=== PATIENT | female | born 1945 | race Caucasian/White ===

== ENCOUNTER 2017-03-12 16:58 | Inpatient (IN) | payer MEDICARE, BC ==
[~2017-03-12] VITALS: Ht 167.6 cm; Wt 62.6 kg
[2017-03-12 18:50] LABS: BASOPHILS 0.2 % (0-2); EOSINOPHILS 0.7 % (0-7); HEMATOCRIT 39.2 % (36.0-48.0); HEMOGLOBIN 13.2 g/dL (12-16); IMMATURE GRANULOCYTES 0.2 % (0-5); MCH 29.1 pg (26.0-34.0); MCHC 33.7 g/dL (31.0-37.0); MCV 86.5 fL (80.0-100.0); MEAN PLATELET VOLUME 10.2 fL (7.4-10.4); MONOCYTES 3.8 % (2-11); NEUTROPHILS 86.1 % (40-80); PLATELET COUNT 225 10x3/uL (130-400); RBC 4.53 10x6/uL (4.00-5.40); RDW 13.5 % (11.5-14.5)
[2017-03-12 19:18] LABS: ALBUMIN 4.4 g/dL (3.4-5.0); ALKALINE PHOSPHATASE 38 U/L (46-116); ALT (SGPT) 22 U/L (10-68); BILIRUBIN - TOTAL 0.67 mg/dL (0.2-1.3); CALC OSMOLALITY 261 mosm/kg (275-300); CALCIUM 9.8 mg/dL (8.5-10.1); CARBON DIOXIDE 29.3 mmol/L (21.0-32.0); CHLORIDE - SERUM 93 mmol/L (98-107); CREATININE - SERUM 0.8 mg/dL (0.6-1.3); GLUCOSE 121 mg/dL (74-106); POTASSIUM - SERUM 4.1 mmol/L (3.5-5.1); PROTEIN - SERUM 7.3 g/dL (6.4-8.2); SODIUM 130 mmol/L (136-145); UREA NITROGEN 13 mg/dL (7-18); eGFR NON AFRICAN AMERICAN 75 mL/min (90-120)
[2017-03-12 19:27] LABS: APPEARANCE CLEAR (CLEAR); COLOR YELLOW (YELLOW); GLUCOSE NEGATIVE (NEGATIVE); KETONE MODERATE mg/dL (NEGATIVE); LEUKOCYTE ESTERASE TRACE (NEGATIVE); NITRITE NEGATIVE (NEGATIVE); PROTEIN NEGATIVE (NEGATIVE)
[2017-03-12 19:28] LABS: BILIRUBIN NEGATIVE (NEGATIVE); EPITHELIAL CELLS 0-5 /hpf (0-5); RED CELLS - URINE 0-5 /hpf (0-5); UROBILINOGEN NORMAL (NORMAL); WHITE CELLS - URINE 0-5 /hpf (0-5)
[2017-03-12 19:29] LABS: BACTERIA MODERATE /hpf (NONE SEEN)
[2017-03-13 00:26] VITALS: BP 182/84; BMI 22.3
[2017-03-13 04:00] VITALS: BP 124/73
[2017-03-13 05:00] LABS: BASOPHILS 0.1 % (0-2); EOSINOPHILS 0.1 % (0-7); HEMATOCRIT 38.9 % (36.0-48.0); HEMOGLOBIN 13.3 g/dL (12-16); IMMATURE GRANULOCYTES 0.2 % (0-5); LYMPHOCYTES 9.8 % (15-50); MCH 29.2 pg (26.0-34.0); MCHC 34.2 g/dL (31.0-37.0); MCV 85.3 fL (80.0-100.0); MEAN PLATELET VOLUME 10.3 fL (7.4-10.4); MONOCYTES 3.8 % (2-11); PLATELET COUNT 253 10x3/uL (130-400); RBC 4.56 10x6/uL (4.00-5.40); RDW 13.3 % (11.5-14.5)
[2017-03-13 05:10] LABS: CALC OSMOLALITY 261 mosm/kg (275-300); CALCIUM 9.3 mg/dL (8.5-10.1); CARBON DIOXIDE 27.5 mmol/L (21.0-32.0); CHLORIDE - SERUM 93 mmol/L (98-107); CREATININE - SERUM 0.8 mg/dL (0.6-1.3); GLUCOSE 113 mg/dL (74-106); POTASSIUM - SERUM 3.8 mmol/L (3.5-5.1); SODIUM 130 mmol/L (136-145); UREA NITROGEN 12 mg/dL (7-18); eGFR NON AFRICAN AMERICAN 75 mL/min (90-120)
[2017-03-13] MEDS ORDERED: NAPROSYN500 MG PO (06:07)
[2017-03-13] MEDS ORDERED: LYRICA100 MG PO (06:08)
[2017-03-13] MEDS ORDERED: HYDROCODON-ACE1 EAC7 PO (06:09)
[2017-03-13] MEDS ORDERED: LIALDA1.2 G PO (06:09)
[2017-03-13] MEDS ORDERED: BONIVA150 MG PO (06:10)
[2017-03-13 07:55] LABS: AMYLASE - SERUM 38 U/L (25-115); LIPASE 94 U/L (73-393)
[2017-03-13 08:32] VITALS: BP 134/61
[2017-03-13 12:30] VITALS: BP 160/61
[2017-03-13 16:02] VITALS: BP 155/69; Ht 167.6 cm; Wt 62.6 kg
--- NOTE | 2017-03-13 19:00 | NUR ---
PATIENT SUPINE IN BED. HOB 30 DEGREES. AAOX4. RR EVEN AND UNLABORED. 0 S/S OF DISTRESS. STATES PAIN IS A 7/10 IN HER LEGS DUE TO NERVE PAIN. EXPLAINED TO PATIENT THAT HER LYRICA IS NOT ORDERED, BUT THAT SHE DOES HAVE DILAUDID. IV TO LEFT AC PATENT WITH NO REDNESS OR SWELLING. NG TUBE TO LIS. TELEMETRY ON. AT BEDSIDE. SRX1. BED LOW. CALL LIGHT WITHIN REACH.
--- NOTE | 2017-03-13 20:30 | NUR ---
DILAUDID GIVEN FOR PAIN. WILL REASSESS.
[2017-03-14] VITALS: BP 147/64
--- NOTE | 2017-03-14 02:45 | NUR ---
DILAUDID GIVEN FOR PAIN OF A 6/10. NOW RESTING IN BED WITH NO OTHER NEEDS.
[2017-03-14 04:00] VITALS: BP 125/60
[2017-03-14 04:42] LABS: BASOPHILS 0.6 % (0-2); EOSINOPHILS 2.3 % (0-7); HEMATOCRIT 36.1 % (36.0-48.0); HEMOGLOBIN 12.1 g/dL (12-16); IMMATURE GRANULOCYTES 0.3 % (0-5); LYMPHOCYTES 16.2 % (15-50); MCH 29.3 pg (26.0-34.0); MCHC 33.5 g/dL (31.0-37.0); MEAN PLATELET VOLUME 10.4 fL (7.4-10.4); NEUTROPHILS 72.6 % (40-80); PLATELET COUNT 222 10x3/uL (130-400); RBC 4.13 10x6/uL (4.00-5.40); RDW 13.6 % (11.5-14.5)
[2017-03-14 04:47] LABS: MCV 87.4 fL (80.0-100.0); WBC 6.6 10x3/uL (4.8-10.8)
[2017-03-14 05:27] LABS: CARBON DIOXIDE 27.8 mmol/L (21.0-32.0); CHLORIDE - SERUM 101 mmol/L (98-107); CREATININE - SERUM 0.7 mg/dL (0.6-1.3); GLUCOSE 88 mg/dL (74-106); SODIUM 136 mmol/L (136-145); eGFR NON AFRICAN AMERICAN 88 mL/min (90-120)
[2017-03-14 05:31] LABS: CALC OSMOLALITY 268 mosm/kg (275-300); UREA NITROGEN 7 mg/dL (7-18)
--- NOTE | 2017-03-14 07:05 | HP ---
PATIENT: ROSANA MARTINEZ MEDICAL RECORD: [id number] ACCOUNT: [id number] LOCATION:[id number] : 47 ADMISSION DATE: 03/12/17 HISTORY AND PHYSICAL EXAMINATION DATE OF ADMISSION: 03/12/2017 CHIEF COMPLAINT: Abdominal pain. HISTORY OF PRESENT ILLNESS: The patient is a 71-year-old female who presented to the Emergency Room. She apparently sees ____ in [place]. He does not admit to [facility]. She is admitted to my service on an unassigned medicine. The patient presented and was found to have what was felt to be an ileus. Therefore, the patient was admitted to my services. PAST MEDICAL HISTORY: She has had a history of having lymphocytic colitis in the past. She has also had history of having scoliosis with rods placed to her back approximately 2 years ago in [place], [place]. PAST SURGICAL HISTORY: The patient has had an appendectomy. FAMILY HISTORY: Mother in her 70s of heart disease. Father also at age 86. SOCIAL HISTORY: Born and raised in [place], she lived in numerous places and lived in [place] with her for the last 7 years. ALLERGIES: SHE IS ALLERGIC TO FLAGYL. MEDICATIONS: Include Lyrica 100 mg t.i.d., Naprosyn 500 mg b.i.d., Boniva 150 mg every 30 days, hydrocodone 5/325 one p.o. q.h.s. HABITS: The patient states she occasionally has a glass of wine. She denies any tobacco abuse. REVIEW OF SYSTEMS: CONSTITUTIONAL: She denies any headaches, seizure or syncope. She denies change in visual or auditory acuity. PULMONARY: She denies any cough, congestion, history of TB, asthma or bronchitis. CARDIOVASCULAR: Unremarkable. GASTROINTESTINAL: The patient states she has never had a bowel obstruction in the past. She does see Dr. Ravi Yin for her lymphocytic colitis. PHYSICAL EXAMINATION: VITAL SIGNS: Her temperature is 98, pulse 78, respirations 16, blood pressure 184/94. GENERAL: She is alert and oriented times 3. HEENT: Her head is normocephalic. No lesions. Ears: TMs clear. Eyes: Pupils equal, round and reactive to light. Extraocular movements are intact. Her nasal cavity, oral cavity and oropharynx clear. NECK: Supple. There is no adenopathy. HEART: Has a regular rhythm. No murmurs, gallops or rubs. LUNGS: Clear. ABDOMEN: Somewhat distended. She has no bowel sounds, no point tenderness. No HISTORY AND PHYSICAL [id number] ROSANA MARTINEZ Caitlyn rebound, no guarding. LABORATORY DATA: The patient had a white count of 10, hemoglobin was ____, hematocrit 39.2, her platelets were 225. Sodium was somewhat low at 130, potassium 4.1, chloride is 93, BUN is 13, creatinine 0.8, glucose is 121. LFTs were unremarkable. She had a KUB. KUB showed air fluid prominence in the mid small bowel, felt this was secondary to small-bowel obstruction or ileus. ASSESSMENT: 1. Ileus, acute onset. 2. History of thoracic lumbar fusion secondary to scoliosis. 3. History of appendectomy, history of lymphocytic colitis. PLAN: The patient will be admitted for IV hydration. Also, we will obtain a CT scan of the abdomen. Surgical consultation will be obtained as well as antiemetics. TRANSINT:[id number] Voice Confirmation ID: [id number] DOCUMENT ID: [id number] CASSIDY WONG MD at 0705 CC: [id number] DICTATION DATE: 03/13/17709 EXECUTIVE ACCOUNT MANAGER: 03/13/17 0807 ADM IN [place] [id number] [place] [address]
--- NOTE | 2017-03-14 07:50 | NUR ---
PT AOX4 RESP EVEN AND NONLABORED IV TO RIGHT FOREARM PATENT AND INTACT NGTUBE TO RIGHT NARE TO LIS AND FUNCTIONING PROPERLY AT THIS TIME PT DENIES NEEDS AT THIS TIME. SRX2 BED AT LOWEST SETTING CALL LIGHT WITHIN REACH WILL CONTINUE TO MONITOR
[2017-03-14 08:06] VITALS: BP 141/65
--- NOTE | 2017-03-14 10:16 | NUR ---
Patient Name: ROSANA MARTINEZ Admission Status: ER Accout number: [id number] Admission Date: 03-12-2017 : 1945 Admission Diagnosis: Attending: REESE Current LOS: 2 Anticipated DC Date: 03-16-2017 Planned Disposition: Home Primary Insurance: MEDICARE A & B Discharge Planning Comments: CM MET WITH PATIENT AND SPOUSE (KEMAR) REGARDING D/C NEEDS AND PLANS. PATIENT DID NOT WANT TO TALK WITH TUBE IN HER NOSE. SPOUSE ANSWERED ALL QUESTIONS. SPOUSE WILL DRIVE PATIENT HOME AT DISCHARGE. HOME IS SAFE AND HAS NO STEPS OR STAIRS. PATIENT IS INDEPENDENT WITH HER CARE AND HAS A CANE, WALKER, SHOWER CHAIR, AND BS COMMODE AT HOME IF NEEDED. PATIENTS PCP IS DR. JACKSON AT [facility] AND [facility]. PATIENTS SPOUSE STATED THEY DID NOT WANT HOME HEALTH AT THIS TIME. CM WILL CONTINUE TO FOLLOW PATIENT WITH D/C NEEDS AND PLANS. PCP DR. JACKSON PHARMACY [phone] KEMAR (SPOUSE) [phone] Svp Digital Sales: Darby Meek Is the patient Alert and Oriented? Yes 0 * How many steps to enter\exit or inside your home? 0 0 * PCP DR. JACKSON AT [facility] 0 * Pharmacy [facility] 0 * Preadmission Environment Home with Family 0 * ADLs Independent 0 * Equipment Bedside Commode Cane Shower Chair Walker 0 * List name and contact numbers for known caregivers / representatives who currently or will assist patient after discharge: KEMAR (SPOUSE) [phone] * Community resources currently utilized None 0 * Additional services required to return to the preadmission environment? Yes 0 * Can the patient safely return to the preadmission environment? Yes 0 * Has this patient been hospitalized within the prior 30 days at any hospital? No 0 Grand Total: 0
[2017-03-14 13:03] VITALS: BP 154/65
[2017-03-14 17:18] VITALS: BP 159/68
[2017-03-14 20:00] VITALS: BP 149/63
[2017-03-15] VITALS: BP 142/63
--- NOTE | 2017-03-15 01:56 | NUR ---
REPORT RECIEVED FROM TERRY FLANNERY AT 0100, RESUMED CARE OF PT. CHECKING IN ON PT AND RESTING COMFORTABLE. RR EVEN AND UNLABORED, NO S&S OF ACUTE DISTRESS NOTED. BED LOW AND LOCKED, CALL LIGHT IN REACH. WILL CONTINUE POC.
[2017-03-15 04:00] VITALS: BP 145/67
--- NOTE | 2017-03-15 04:27 | NUR ---
REQUESTED MORE DILAUDID, CHECKED EMAR AND INFORMED HER THAT SHW COULD HAVE IT EVERY 6 HOURS SO THAT WOULD PUT HER NEXT DOSE CLOSE TO 0700. WILL CONTINUE TO MONITOR AND CONTINUE POC.
[2017-03-15] MEDS ORDERED: ZOFRAN4 MG PO (06:58)
--- NOTE | 2017-03-15 07:50 | NUR ---
PT AOX4 RESP EVEN AND NONLABORED IV TO RIGHT FOREARM PATENT AND INTACT PT DENIES NEEDS AT THIS TIME SRX2 BED AT LOWEST SETTING CALL LIGHT WITHIN REACH WILL CONTINUE TO MONITOR
[2017-03-15 08:31] VITALS: BP 154/61
--- NOTE | 2017-03-15 08:31 | NUR ---
CM Note: CM met with pt to see if she needed needs at home that CM could set up for her. She denied HH or any other needs. IMM served pt will be discharged home and at bedside to drive her home. Radha Huitron RN
--- NOTE | 2017-03-15 08:57 | NUR ---
IV DISCONTINUED WITH CATHETER INTACT AT THIS TIME DISCHARGE INSTRUCTIONS GIVEN TO PT AND SPOUSE AT THIS TIME. PT TRANSPORTED VIA WHEELCHAIR VIA PRIVATE VEHICLE AT THIS TIME
== END 2017-03-15 08:59 | disposition home or self-care (01) | DRG 390 ==
LOC: D.ER 16:58 → D.MS 21:16
PROVIDERS: Emergency Medicine Emergency Medical Services; Family Medicine; ADMIT Family Medicine
PROC: 0D9670Z Drainage of Stomach with Drainage Device, Via Natural or Artificial Opening (ICD-10-PCS; principal; 2017-03-12)
DX: K56.7 Ileus, unspecified (principal)